=== PATIENT | female | born 1965 | race Two or more races ===

== ENCOUNTER 2022-04-30 15:20 | Emergency (ER) | payer SELFPAY ==
[~2022-04-30] VITALS: Ht 162.6 cm; Wt 99.8 kg
[2022-04-30 15:32] VITALS: BP 148/85
[2022-04-30] MEDS ORDERED: IBUPROFEN 400 MG TABLET PO ONE (16:00)
[2022-04-30] MEDS ORDERED: IBUPROFEN 400 MG TABLET ONE (16:24)
== END 2022-04-30 16:30 | disposition left against medical advice (07) ==
LOC: ER 15:25
DX: S01.01XD Laceration without foreign body of scalp, subsequent encounter (principal); X58.XXXD Exposure to other specified factors, subsequent encounter